=== PATIENT | female | born 1950 | race Caucasian/White ===

== ENCOUNTER → 2017-11-12 17:38 | Outpatient (CLI) | payer BC, SELFPAY ==
[2017-11-12 18:07] LABS: INR 3.5 (0.9-1.3); Prothrombin Time 37.2 SECONDS (10.1-12.7)
== END ==
PROVIDERS: Family Provider Physician Assistant; PCP Physician Assistant; Visit Provider Pharmacist Pharmacotherapy
DX: Z79.01 Long term (current) use of anticoagulants (principal)
CPT/HCPCS: 36415; 85610

== ENCOUNTER → 2017-12-04 16:41 | Outpatient (CLI) | payer BC, SELFPAY ==
[2017-12-04 17:25] LABS: INR 3.8 (0.9-1.3); Prothrombin Time 40.9 SECONDS (10.1-12.7)
== END ==
PROVIDERS: Family Provider Physician Assistant; PCP Physician Assistant; Visit Provider Pharmacist Pharmacotherapy
DX: Z79.01 Long term (current) use of anticoagulants (principal)
CPT/HCPCS: 36415; 85610

== ENCOUNTER → 2017-12-20 08:16 | Outpatient (CLI) | payer BC, SELFPAY ==
[2017-12-20 09:14] LABS: INR 2.2 (0.9-1.3); Prothrombin Time 24.4 SECONDS (10.1-12.7)
== END ==
PROVIDERS: Family Provider Physician Assistant; PCP Physician Assistant; Visit Provider Pharmacist Pharmacotherapy
DX: Z79.01 Long term (current) use of anticoagulants (principal)
CPT/HCPCS: 36415; 85610

== ENCOUNTER → 2017-12-26 10:44 | Outpatient (CLI) | payer BC, SELFPAY ==
[2017-12-26 17:42] LABS: Thyroid Stimulating Hormone 0.58 uIU/mL (0.47-4.68)
== END ==
PROVIDERS: Family Provider Physician Assistant; PCP Physician Assistant; Visit Provider Physician Assistant
DX: E03.9 Hypothyroidism, unspecified (principal)
CPT/HCPCS: 36415; 84443

== ENCOUNTER → 2018-01-02 12:24 | Outpatient (CLI) | payer MEDICARE, OTHER, SELFPAY ==
[2018-01-02 12:58] LABS: INR 2.6 (0.9-1.3)
== END ==
PROVIDERS: Family Provider Physician Assistant; PCP Physician Assistant; Visit Provider Pharmacist Pharmacotherapy
DX: Z79.01 Long term (current) use of anticoagulants (principal)
CPT/HCPCS: 36415; 85610

== ENCOUNTER → 2018-01-23 07:36 | Outpatient (CLI) | payer MEDICARE, OTHER, SELFPAY | PROVIDERS: Family Provider Physician Assistant; PCP Physician Assistant; Visit Provider Pharmacist Pharmacotherapy | DX: Z79.01 Long term (current) use of anticoagulants (principal) | CPT/HCPCS: 36415; 85610 ==

== ENCOUNTER → 2018-05-09 13:20 | Outpatient (CLI) | payer MEDICARE, OTHER, SELFPAY ==
[2018-05-09 14:00] LABS: INR 2.8 (0.9-1.3); Prothrombin Time 32.3 SECONDS (10.1-12.7)
== END ==
PROVIDERS: Visit Provider Pharmacist Pharmacotherapy
DX: Z79.01 Long term (current) use of anticoagulants (principal)
CPT/HCPCS: 36415; 85610

== ENCOUNTER → 2018-06-13 15:21 | Outpatient (CLI) | payer MEDICARE, OTHER, SELFPAY ==
[2018-06-13 15:42] LABS: INR 1.9 (0.9-1.3); Prothrombin Time 22.6 SECONDS (10.1-12.7)
== END ==
PROVIDERS: Family Provider Physician Assistant; PCP Physician Assistant; Visit Provider Pharmacist Pharmacotherapy
DX: Z79.01 Long term (current) use of anticoagulants (principal)
CPT/HCPCS: 36415; 85610

== ENCOUNTER → 2018-07-24 16:09 | Outpatient (CLI) | payer MEDICARE, OTHER, SELFPAY ==
[2018-07-24 17:09] LABS: INR 3.8 (0.9-1.3); Prothrombin Time 44.7 SECONDS (10.1-12.7)
== END ==
PROVIDERS: Visit Provider Pharmacist Pharmacotherapy
DX: Z79.01 Long term (current) use of anticoagulants (principal)
CPT/HCPCS: 36415; 85610

== ENCOUNTER → 2018-08-07 13:09 | Outpatient (CLI) | payer MEDICARE, OTHER, SELFPAY ==
[2018-08-07 13:32] LABS: INR 1.5 (0.9-1.3); Prothrombin Time 17.1 SECONDS (10.1-12.7)
== END ==
PROVIDERS: Pharmacist Pharmacotherapy; Visit Provider Internal Medicine Gastroenterology
DX: Z79.01 Long term (current) use of anticoagulants (principal)
CPT/HCPCS: 36415; 85610

== ENCOUNTER → 2018-08-13 13:01 | Outpatient (CLI) | payer MEDICARE, OTHER, SELFPAY ==
[2018-08-13 13:51] LABS: INR 4.3 (0.9-1.3); Prothrombin Time 51.4 SECONDS (10.1-12.7)
== END ==
PROVIDERS: Visit Provider Pharmacist Pharmacotherapy
DX: Z79.01 Long term (current) use of anticoagulants (principal)
CPT/HCPCS: 36415; 85610